=== PATIENT | male | born 1995 | race Two or more races ===

== ENCOUNTER 2019-02-09 17:52 | Emergency (ER) | payer OTHER ==
[~2019-02-09] VITALS: Ht 182.9 cm; Wt 93.8 kg
--- NOTE | 2019-02-09 18:03 | PHYS DOC ---
Past History Past Medical History: Asthma Adult General Chief Complaint Chief Complaint: COUGH............." I ve been couhing a lot the last couple days....may some fever.. congestion.. drainage.. 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 Patient has not been overseas for over a year last duty assignments [place]. Patient is up-to-date with vaccinations. No specific ill contacts. Patient normally healthy. Patient does not smoke. Patient does not vape. No significant family history. No history immunosuppression. Patient follows at [facility]. Hx. Asthma as child.. Occasional use of MDI now with Upper airway infections or seasonal triggers that cause wheezing. Does not know his best peak flow. No hx of Asthma admissions. Review of Systems Review of Systems Constitutional: Subjective history of fever or chills [] Eyes: Denies change in visual acuity, redness, or eye pain [] HENT: History of nasal congestion and sore throat [] Respiratory: History of cough and wheezing Cardiovascular: No additional information not addressed in HPI [] GI: Denies abdominal pain, nausea, vomiting, bloody stools or diarrhea [] : Denies dysuria or hematuria [] Musculoskeletal: Denies back pain or joint pain [] Integument: Denies rash or skin lesions [] Neurologic: Denies headache, focal weakness or sensory changes [] Endocrine: Denies polyuria or polydipsia [] All other systems were reviewed and found to be within normal limits, except as documented in this note. Family History Family History Noncontributory Current Medications Current Medications See nursing for home meds Allergies Allergies No known drug allergies Physical Exam Physical Exam Constitutional: Well developed, well nourished, no acute distress, non-toxic a ppearance. [] HENT: Normocephalic, atraumatic, bilateral external ears normal, oropharynx moist, injected pharynx, no oral exudates, nose swollen turbinates and clear rhinorrhea Eyes: PERRLA, EOMI, conjunctiva normal, no discharge. [] Neck: Normal range of motion, no tenderness, supple, no stridor. [] Cardiovascular:Heart rate regular rhythm, no murmur [] Lungs & Thorax: Bilateral breath sounds equal apex with few scattered wheezes on auscultation []no intercostal retractions. Abdomen: Bowel sounds normal, soft, no tenderness, no masses, no pulsatile masses. [] Skin: Warm, dry, no erythema, no rash. [] Back: No tenderness, no CVA tenderness. [] Extremities: No tenderness, no cyanosis, no clubbing, ROM intact, no edema. [] No cording. Neurologic: Alert and oriented X 3, normal motor function, normal sensory function, no focal deficits noted. [] Psychologic: Affect normal, judgement normal, mood normal. [] EKG EKG [] Radiology/Procedures Radiology/Procedures [] Course & Med Decision Making Course & Med Decision Making Pertinent Labs and Imaging studies reviewed. (See chart for details) Patient push fluids and get adequate rest. Take Tylenol and ibuprofen as needed for discomfort. Take prednisone 50 mg a day for 5 days. Use MDI 2 puffs 4 times a day with spacer. Follow-up primary care. Return if any concerns. Use Benadryl [id number] 50 mg at night for drainage and cough. Impression: []1. Viral Syndrome 2. Reactive Airway- Hx. Asthma Dragon Disclaimer Dragon Disclaimer This electronic medical record was generated, in whole or in part, using a voice recognition dictation system. Departure Departure: Disposition: 01 HOME/RESIDENCE PRIOR TO ADM Condition: STABLE Referrals: PCP,UNKNOWN (PCP) Scripts Prednisone (PREDNISONE) 50 Mg Tablet 50 MG PO DAILY for reactive airway for 5 Days, #5 TAB Prov: LUCÍA NOLAND MD 02/09/19 Jennifer Disclaimer This chart was dictated in whole or in part using Voice Recognition software in a busy, high-work load, and often noisy Emergency Department environment. It may contain unintended and wholly unrecognized errors or omissions. Dragon Disclaimer This chart was dictated in whole or in part using Voice Recognition software in a busy, high-work load, and often noisy Emergency Department environment. It may contain unintended and wholly unrecognized errors or omissions. LUCÍA NOLAND MD Feb 09, 2019 18:03
[2019-02-09] MEDS ORDERED: ALBUTEROL SULFATE 8GM INHALER. INH ONE (18:15)
[2019-02-09] MEDS ORDERED: predniSONE 10 MG TABLET PO ONE (18:15)
[2019-02-09 19:26] VITALS: BP 150/68
[2019-02-09 19:29] LABS: INFLUENZA A PATIENT NEGATIVE (NEGATIVE); INFLUENZA B PATIENT NEGATIVE (NEGATIVE)
[2019-02-09] MEDS ORDERED: PRED50TA PO (19:43)
== END 2019-02-09 20:07 | disposition home or self-care (01) ==
LOC: ER 17:52
DX: J45.901 Unspecified asthma with (acute) exacerbation (principal); B34.9 Viral infection, unspecified
CPT/HCPCS: 87070; 87804; 87880; 94640; 99284; J7512; J7613; 94664